=== PATIENT | female | born 1930 | race Caucasian/White ===

== ENCOUNTER 2017-09-02 08:29 | Inpatient (IN) | payer MEDICARE, OTHER ==
[2017-09-02] MEDS ORDERED: NS 0.9% 1000 ML* 1,000 ML IV ONE ×2 (08:38→09:53)
[2017-09-02 08:58] LABS: ABS Basophils 0 10^3/ul (0-0.2); ABS Eosinophils 0 10^3/ul (0-0.6); ABS Lymphocytes 1.2 10^3/ul (1.0-4.8); ABS Monocytes 0.6 10^3/ul (0-0.8); ABS Neutrophils 4.5 10^3/ul (1.5-7.7); ABS Nucleated RBC 0 10^3/ul; Eosinophil % 0.3 % (0-6); Hematocrit 46 % (35-47); Hemoglobin 15.9 g/dl (12.0-16.0); Lymphocyte % 18.5 % (25-47); Mean Corpuscular HGB Conc 35 g/dl (31-36); Mean Corpuscular Hemoglobin 32 pg (27-31); Mean Corpuscular Volume 93 fL (80-97); Mean Platelet Volume 7 um3 (7.4-10.4); Nucleated Red Blood Cells % 0.1; Platelet Count 196 10^3/ul (150-450); Red Blood Count 4.94 10^6/ul (4.0-5.4); Red Cell Distribution Width 14 % (10.5-15); White Blood Count 6.2 10^3/ul (3.5-10.8)
[2017-09-02 09:16] LABS: EGFR Non-African American 48.5 (>60)
[2017-09-02 09:18] LABS: INR 0.98 (0.77-1.02)
[2017-09-02] MEDS ORDERED: Iodixanol* (CONTRAST) 320 MG/ML 100 ML SDV IV ONE (09:19)
--- NOTE | 2017-09-02 10:06 | RAD ---
HISTORY: Fall, syncope COMPARISONS: May 11, 2016 TECHNIQUE: Multiple contiguous axial CT scans were obtained of the head without intravenous contrast. FINDINGS: HEMORRHAGE/INFARCT: There is no hemorrhage or acute infarct. MASSES/SHIFT: There is no mass or shift. EXTRA-AXIAL SPACES: There are no extra-axial fluid collections. SULCI AND VENTRICLES: The sulci and ventricles are normal in size and position for the patient's stated age. CEREBRUM: There is hypoattenuation of the periventricular and subcortical white matter. BRAINSTEM: There are no focal parenchymal abnormalities. CEREBELLUM: There are no focal parenchymal abnormalities. VESSELS: The vessels are grossly normal. PARANASAL SINUSES: The paranasal sinuses are clear. ORBITS: The orbits are unremarkable. BONES AND SOFT TISSUE: No bone or soft tissue abnormalities are noted. OTHER: None IMPRESSION: NO ACUTE INTRACRANIAL PATHOLOGY.
--- NOTE | 2017-09-02 10:17 | RAD ---
HISTORY: Fall, neck pain COMPARISONS: April 01, 2009 TECHNIQUE: Multiple contiguous axial CT scans were obtained of the cervical spine without intravenous contrast, with coronal and sagittal multiplanar reformations. FINDINGS: BRAIN: The visualized brain is unremarkable CENTRAL CANAL: Evaluation of the central canal is limited on CT technique; however, there is no obvious canalicular mass or epidural hemorrhage. Focal decreased attenuation in the central canal opposite of C4 on sagittal image 35 is felt to represent beam hardening artifact. ALIGNMENT: The alignment is normal, without subluxation or dislocation. VERTEBRAL BODIES: There is diffuse osteopenia. There is no displaced fracture. There is multilevel anterolateral marginal osteophyte formation. 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 There is osteoarthritis of the atlantoaxial articulation. MUSCULATURE: Unremarkable INTERVERTEBRAL DISCS: There is diffuse loss of intervertebral disc height. AXIAL IMAGES: C2-C3: There is no osseous neural foraminal narrowing or central canal stenosis. C3-C4: There is no osseous neural foraminal narrowing or central canal stenosis. C4-C5: There is no osseous neural foraminal narrowing or central canal stenosis. C5-C6: There is no osseous neural foraminal narrowing or central canal stenosis. C6-C7: There is no osseous neural foraminal narrowing or central canal stenosis. C7-T1: There is no osseous neural foraminal narrowing or central canal stenosis. SOFT TISSUES: The visualized soft tissues of the neck are unremarkable. The prevertebral fat stripe is preserved. OTHER: None. IMPRESSION: OSTEOPENIA. DEGENERATIVE DISC DISEASE AND OSTEOPOROSIS. NO ACUTE OSSEOUS INJURY TO THE CERVICAL SPINE
--- NOTE | 2017-09-02 10:25 | RAD ---
Indication: Chest pain. Contrast: Administered 100.0 ml of VISAPAQUE 320 mg/ml CTA of the chest, abdomen and pelvis was performed after IV contrast administration. Coronal, sagittal and 3-D reconstructive images were obtained. Inferior thyroid lobes are unremarkable. The aortic arch, great vessels are unremarkable. There is no evidence of aortic dissection. No evidence of aneurysmal dilatation is noted. Common iliac artery, external iliac arteries are unremarkable. There are small lymph nodes measuring 12 mm. Precarinal lymph node measures up to 9 mm. Right hilar adenopathy measuring up to 16 mm is noted. The heart demonstrates no pericardial effusion. No evidence of pulmonary embolus is noted. The trachea and major bronchi appear patent. Bibasilar atelectasis is noted. No pleural fluid is identified. Bibasilar atelectasis is noted. No pleural fluid is identified. Mild emphysematous changes are noted. CT of the abdomen and pelvis demonstrates liver to be normal in size. Low density lesion in the left lobe of liver consistent with cyst is noted measuring 2.5 cm. No intrahepatic ductal dilatation is noted. The gallbladder demonstrates no calcified gallstones. No pericholecystic fluid or wall thickening is identified. The pancreas demonstrates no mass or pancreatic duct dilatation. The spleen is normal in size. No adrenal masses are noted. The kidneys demonstrates atrophic kidneys with no hydronephrosis. Aorta demonstrates no evidence of aneurysmal dilatation. Mild atherosclerosis is noted. The origins of the vessels are grossly unremarkable. No retroperitoneal lymphadenopathy is noted. No dilated loops of bowel are noted. CT of the pelvis demonstrates no retroperitoneal or pelvic lymphadenopathy. The urinary bladder is unremarkable. No hernias are noted. No dilated loops of bowel are noted. No definite pelvic adenopathy is noted. The uterus and ovaries are unremarkable. The bony structures demonstrates diffuse osteopenia. IMPRESSION: No evidence of aortic dissection or aneurysmal dilatation of the thoracic or descending aorta. No branch occlusion is identified. No evidence of pulmonary embolus is noted. Likely atelectasis and chronic changes in the lung bases. Cardiomegaly is noted. Hepatic cyst is noted.
[2017-09-02] MEDS ORDERED: Ondansetron INJ* 2 MG/ML VIAL IV ONE (10:29)
[2017-09-02] MEDS ORDERED: Morphine INJ* 2 MG/ML 1 ML CARPUJECT IV ONE (10:30)
[2017-09-02 12:53] LABS: Urine Appearance Clear; Urine Blood 1+ (Negative); Urine Color Amber; Urine Ketones 1+ (Negative); Urine Protein 1+(30 mg/dL) (Negative); Urine Specific Gravity 1.044 (1.010-1.030); Urine Urobilinogen Negative (Negative)
[2017-09-02] MEDS ORDERED: Oseltamivir CAP* 30 MG CAP PO ONE (14:10)
[2017-09-02] MEDS ORDERED: NS 0.9% 1000 ML* 1,000 ML IV SCH (15:00)
[2017-09-02] MEDS ORDERED: Naphazoline/Pheniramine OPTH* 5 ML BTL BOTH EYES PRN (15:24)
[2017-09-02] MEDS ORDERED: Ergocalciferol CAP* 50000 UNIT PO SCH (16:00)
[2017-09-02] MEDS ORDERED: Albuterol/Ipratropium NEB.SOL* Albuterol 2.5 MG/Ipratropium 0.5 MG 3 ML INH PRN ×2 (17:05→23:49)
[2017-09-02] MEDS: Rivaroxaban TAB(*) 15 MG PO SCH (17:14)
[2017-09-02] MEDS: HYDROcodone/ACETAMIN 5-325 MG* 1 TAB PO PRN (17:14)
[2017-09-02] MEDS: Diltiazem TAB* 30 MG PO SCH ×2 (18:41→23:57)
[2017-09-02] MEDS: Albuterol/Ipratropium NEB.SOL* Albuterol 2.5 MG/Ipratropium 0.5 MG 3 ML INH SCH ×2 (19:58→23:41)
--- NOTE | 2017-09-02 20:07 | HP ---
CC: Dr. Brumfield * HISTORY AND PHYSICAL: DATE OF ADMISSION: 09/02/17 ATTENDING PHYSICIAN: Dr. Dominguez * (report dictated by Leticia Tillman NP) PRIMARY CARE PROVIDER: Dr. Brumfield. CHIEF COMPLAINT: Fall. HISTORY OF PRESENT ILLNESS: Ms. Manning is an 87-year-old female with a past medical history of atrial fibrillation on Xarelto, hypertension, hyperlipidemia , chronic kidney disease stage 2 to 3, and some mild cognitive decline who lives at [facility] as an independent resident with her who found her on the floor this morning. The patient does not remember falling and does not know how long she was on the floor. Per the and the son who are currently at the bedside, she has not been feeling well for 2 days, which started with a cough and fatigue. The patient denies any fevers or chills. She does report increased fatigue, decreased appetite and had some diarrhea this morning. In the emergency department today, she was found to be positive for influenza A. She denies body aches, headache, nausea, vomiting, abdominal pain. No urinary symptoms. She does not remember getting out of bed and falling and is not sure if she rolled out of bed as she was found right next to the bed or if she tried to get up to go to the bathroom. It was also reported by EMS that there was some diarrhea found in her undergarment as well as on the sheets of her bed. Currently, the patient reports she feels a little better. Again, she denies fevers, chills, body aches, headache, abdominal pain, and has had no further diarrhea. She reports decreased appetite and fatigue. The patient does report she has some chest discomfort when she breathes in, but states "I do not think it is cardiac." She was found down on her chest and has noted reproducible chest pain. She denies shortness of breath. In the emergency department, her vital signs were stable. She was given 1 L of IV normal saline. She has no noted leukocytosis. Her total creatine kinase was found to be 840. She has a slightly elevated troponin of 0.05 and 0.06. No EKG changes. PAST MEDICAL HISTORY: 1. Stage 2 to 3 chronic kidney disease. 2. Atrial fibrillation, anticoagulated on Xarelto. 3. Hyperlipidemia. 4. Hypertension. PAST SURGICAL HISTORY: Tonsillectomy. HOME MEDICATIONS: 1. Xarelto 20 mg p.o. daily. 2. Diltiazem CD 240 mg p.o. q.a.m. 3. Magnesium 250 mg p.o. q.p.m. 4. Acetaminophen 500 mg p.o. q.8 hours p.r.n. 5. Zyrtec 5 mg p.o. q.a.m. 6. Meclizine 12.5 mg p.o. q.8 hours p.r.n. 7. Vitamin B12, 1000 mcg p.o. daily. 8. Naphazoline with pheniramine 1 drop both eyes 4 times a day p.r.n. 9. Vitamin D 50,000 units p.o. weekly. 10. Aricept 5 mg p.o. daily. ALLERGIES: AMOXICILLIN, ASPIRIN, SOMA, BARBITURATES, METOPROLOL, CLAVULANIC ACID. FAMILY HISTORY: Reports no family history of heart disease. Her father has a history of colorectal cancer which he from and her mother of advanced age. SOCIAL HISTORY: The patient is currently an independent resident at [facility] where she lives with her . Her is her healthcare proxy. She has 5 adult sons. She denies any history of tobacco abuse and reports occasional alcohol use. REVIEW OF SYSTEMS: A 14-point review of systems was performed. All the pertinent positives and negative are mentioned in the history of present illness. Otherwise, negative. PHYSICAL EXAMINATION GENERAL APPEARANCE: Well-appearing 87-year-old female, sitting up in bed, in no acute distress. Her and son are at the bedside. The patient is alert and oriented x3. She has noted mild cognitive impairment with memory recall, but is able to answer questions appropriately. VITAL SIGNS: Temperature 98.9, heart rate 85, respirations 17, O2 sat 94% on room air, blood pressure is 112/64. HEENT: Head is normocephalic, atraumatic. Pupils are equal and reactive to light. Oropharynx is clear. Dry mucous membranes. NECK: Supple. No lymphadenopathy. LUNGS: Clear to auscultation bilaterally. Good aeration throughout. No rhonchi, wheezes, or rales noted. CARDIAC: S1, S2. Irregularly irregular. No murmur noted. ABDOMEN: Soft, nontender, nondistended. Normal bowel sounds throughout. No CVA tenderness. EXTREMITIES: No clubbing, cyanosis, or edema noted. MUSCULOSKELETAL: Strength is 5/5 throughout. Moves all extremities equally. reproducible chest pain with palpation to midsternum and right upper chest wall , no noted eccymosis or redness. SKIN: Warm, pink, dry. No rashes, lesions, or wounds noted. LABORATORY DATA AND DIAGNOSTIC STUDIES: Sodium 133, potassium 3.9, chloride 98 , carbon dioxide 24, anion gap 11, BUN 25, creatinine 1.04, glucose 90, lactic acid 1.6, calcium 9.6, total bilirubin 0.50, AST 56, ALT 20, alkaline phosphatase 78. Total creatine kinase 840. Troponin 0.05, 0.06. Total protein 7.6, albumin 4.2. WBC 6.2, RBC 4.94, HGB 15.9, HCT 46, MCV 93, MCH 32, MCHC 35, RDW 14, platelet count 196,000. INR 0.98. Influenza A positive. Influenza B negative. Chest, abdomen, pelvis CTA, impression: No evidence of aortic dissection or aneurysmal dilatation of the thoracic or descending aorta. No branch occlusion is identified. No evidence of pulmonary embolus is noted. Likely, atelectasis and chronic changes in the lung bases. Cardiomegaly is noted. Hepatic cyst is noted. Brain CT, no acute intracranial pathology. Cervical spine CT, impression: Osteopenia. Degenerative disk disease and osteoporosis. No acute osseous injury to the cervical spine. EKG, atrial fibrillation with a rate of 74, no ST changes noted. ASSESSMENT AND PLAN: Ms. Manning is an 87-year-old female with a past medical history of atrial fibrillation, on Xarelto, chronic kidney disease, hyperlipidemia, and hypertension who presented to the emergency department today after she was found on the floor for an unknown amount of time and found to have influenza A. 1. Influenza A. She will be started on Tamiflu renally dosed at 30 mg p.o. t.i.d. x5 days. She appears to be mildly ill at this time. She has no noted pneumonia. No lactic acidosis and no leukocytosis. She does appear to be dehydrated and was given 1 L of normal saline in the emergency department. Plan will be to start normal saline at 100 mL an hour times another liter. We will continue to encourage her to get out of bed to chair and commode and ambulate as she can with assistance, so she does not become weak and lose her strength. 2. Fall. The patient's creatine kinase is 840. Will give gentle IV fluids and recheck in the morning. It is unknown how long she was down on the floor. It is unknown if she had a syncopal episode as she does not remember. We will monitor her on telemetry. Obtain echo. She is on xarelto, no noted bruising at this time. CT brain negative. 3. Indeterminate elevated troponin. The patient does not have any EKG changes. She has some chest discomfort, but this is reproducible when I push on her chest i believe it is from her falling. First troponin is 0.05, second troponin is 0.06. We will check a third troponin now. 4. Atrial fibrillation. Controlled rate on Cardizem. We will continue Xarelto at this time. Continue Cardizem home dose. 5. Chronic kidney disease. The patient appears to be around her baseline creatinine. Renally dosed medications. 6. Hypertension. Continue valsartan and diltiazem. 7. Code status. The patient is a DNR/DNI. The MOLST has been reviewed with the patient and her as well as the son who is at the bedside who agreed with the plan. 8. Healthcare proxy is her . 9. Disposition. OBV. It is really possible the patient may be able to go home tomorrow determining her functional status. LETICIA TILLMAN NP [id number]/CPS #: [id number] MATTHEW
[2017-09-02] MEDS ORDERED: Oseltamivir CAP* 30 MG CAP PO SCH (21:00)
[2017-09-03] MEDS: HYDROcodone/ACETAMIN 5-325 MG* 1 TAB PO PRN (02:57)
[2017-09-03] MEDS: Diltiazem TAB* 30 MG PO SCH ×4 (05:51→23:35)
[2017-09-03] MEDS ORDERED: Oseltamivir CAP* 30 MG CAP PO SCH (06:00)
[2017-09-03 06:30] LABS: ABS Basophils 0 10^3/ul (0-0.2); ABS Eosinophils 0 10^3/ul (0-0.6); ABS Lymphocytes 0.9 10^3/ul (1.0-4.8); ABS Monocytes 0.3 10^3/ul (0-0.8); ABS Nucleated RBC 0 10^3/ul; Eosinophil % 0.8 % (0-6); Hematocrit 35 % (35-47); Hemoglobin 12.3 g/dl (12.0-16.0); Lymphocyte % 27.1 % (25-47); Mean Corpuscular HGB Conc 35 g/dl (31-36); Mean Corpuscular Hemoglobin 33 pg (27-31); Mean Corpuscular Volume 93 fL (80-97); Mean Platelet Volume 7 um3 (7.4-10.4); Nucleated Red Blood Cells % 0.1; Platelet Count 174 10^3/ul (150-450); Red Blood Count 3.79 10^6/ul (4.0-5.4); Red Cell Distribution Width 14 % (10.5-15); White Blood Count 3.2 10^3/ul (3.5-10.8)
[2017-09-03 06:44] LABS: EGFR Non-African American 42.9 (>60)
[2017-09-03] MEDS ORDERED: Magnesium Oxide TAB* 400 MG PO ONE ×2 (07:49→11:49)
[2017-09-03] MEDS: Oseltamivir CAP* 30 MG CAP PO SCH ×2 (08:48→21:38)
[2017-09-03] MEDS: Donepezil TAB* 5 MG PO SCH (08:48)
[2017-09-03] MEDS: Cyanocobalamin TAB* 500 MCG PO SCH (08:49)
[2017-09-03] MEDS: Acetaminophen TAB* 325 MG PO PRN ×2 (08:49→23:35)
[2017-09-03] MEDS ORDERED: Diltiazem CD CAP* 240 MG PO SCH (09:00)
--- NOTE | 2017-09-03 11:58 | PN ---
Subjective Date of Service: 09/03/17 Interval History: She is having visual hallucinations. When she was looking at her menu, she saw a new red/yellow menu descend from the ceiling and she started checking boxes on that menu. She has no pain, no cough, no fevers/chills, no diarrhea. Family History: Unchanged from Admission Social History: Unchanged from Admission Past Medical History: Unchanged from Admission Objective Active Medications: Acetaminophen (Tylenol Tab*) 650 mg PO Q6H PRN PRN Reason: FEVER/PAIN Last Admin: 09/03/17 08:49 Dose: 650 mg Hydrocodone Bitart/Acetaminophen ([place] 5-325 Tab*) 1 tab PO Q6H PRN PRN Reason: PAIN Last Admin: 09/03/17 02:57 Dose: 1 tab Albuterol/Ipratropium (Duoneb (Albuterol 2.5 Mg/Ipratropium 0.5 Mg)) 1 neb INH Q4H PRN PRN Reason: SOB/WHEEZING Cyanocobalamin (Vitamin B12 Tab*) 1,000 mcg PO DAILY [facility] Last Admin: 09/03/17 08:49 Dose: 1,000 mcg Diltiazem HCl (Cardizem Tab*) 30 mg PO Q6HR [facility] Last Admin: 09/03/17 05:51 Dose: 30 mg Donepezil HCl (Aricept Tab*) 5 mg PO DAILY [facility] Last Admin: 09/03/17 08:48 Dose: 5 mg Naphazoline HCl/Pheniramine Maleate (Naphcon-A*) 1 drop BOTH EYES QID PRN PRN Reason: ITCHING Oseltamivir Phosphate (Tamiflu Cap*) 30 mg PO 0900,2100 [facility] Stop: 09/07/17 09:01 Last Admin: 09/03/17 08:48 Dose: 30 mg Rivaroxaban (Xarelto(*)) 15 mg PO QPM [facility] Last Admin: 09/02/17 17:14 Dose: 15 mg Vital Signs - 8 hr 09/03/17 09/03/17 09/03/17 05:44 08:00 08:28 Temperature 98.3 F Pulse Rate 67 Respiratory 19 20 20 Rate Blood Pressure 108/58 (mmHg) O2 Sat by Pulse 100 100 Oximetry Oxygen Devices in Use Now: Nasal Cannula Appearance: nontoxic, no distress Eyes: No Scleral Icterus Ears/Nose/Mouth/Throat: NL Teeth, Lips, Gums Neck: NL Appearance and Movements; NL JVP Respiratory: Symmetrical Chest Expansion and Respiratory Effort, - - rhonchi at the right base Cardiovascular: NL Sounds; No Murmurs; No JVD, RRR Abdominal: NL Sounds; No Tenderness; No Distention Extremities: No Edema Skin: No Rash or Ulcers Neurological: - - oriented x 4, but tangential with clouded sensorium, forgetful Result Diagrams: 09/03/17 05:51 09/03/17 06:00 Assess/Plan/Problems-Billing Assessment: 87 yo female with history of afib - Patient Problems (1) Influenza Current Visit: Yes Status: Acute Code(s): J11.1 - FLU DUE TO UNIDENTIFIED INFLUENZA VIRUS W OTH RESP MANIFEST SNOMED Code(s): 7587021 Comment: tamiflu day 2 (2) Fall Current Visit: Yes Status: Acute Comment: she and her report 3 falls in the past week. may be unsafe to return to current living situation check orthostatic vitals PT consult (3) Afib Current Visit: No Status: Acute Code(s): I48.91 - UNSPECIFIED ATRIAL FIBRILLATION SNOMED Code(s): 00223825 Comment: Continue diltiazem and xarelto. (4) Hypertension Current Visit: No Status: Acute Code(s): I10 - ESSENTIAL (PRIMARY) HYPERTENSION SNOMED Code(s): 67223666 Comment: BP well controlled (5) Oliguria Current Visit: Yes Status: Acute Code(s): R34 - ANURIA AND OLIGURIA SNOMED Code(s): 75509474 Comment: bladder scan with <300cc; suspect volume depletion. resume IVF. (6) Encephalopathy acute Current Visit: Yes Status: Acute Code(s): G93.40 - ENCEPHALOPATHY, UNSPECIFIED SNOMED Code(s): 0546396 Comment: may be related to influenza, but I also suspect volume depletion. CT head negative yesterday. UA unremarkable. may also be progressive dementia.
[2017-09-03] MEDS: NS 0.9% 1000 ML* 1,000 ML IV SCH (12:33)
[2017-09-03] MEDS: Ondansetron INJ* 2 MG/ML VIAL IV PRN (14:53)
[2017-09-03] MEDS: Rivaroxaban TAB(*) 15 MG PO SCH (18:21)
--- NOTE | 2017-09-03 19:07 | RAD ---
INDICATION: Small bowel obstruction. COMPARISON: Comparison is made with a prior CT of the chest, abdomen and pelvis from September 02, 2017. TECHNIQUE: Frontal supine films of the abdomen were obtained. FINDINGS: The small bowel and colon appear nondistended. There is contrast within the urinary bladder from the prior CT study. IMPRESSION: NO EVIDENCE FOR OBSTRUCTION.
[2017-09-04] MEDS: NS 0.9% 1000 ML* 1,000 ML IV SCH ×2 (00:57→06:59)
[2017-09-04] MEDS: Diltiazem TAB* 30 MG PO SCH (07:00)
[2017-09-04] MEDS: Donepezil TAB* 5 MG PO SCH (07:58)
[2017-09-04] MEDS: Cyanocobalamin TAB* 500 MCG PO SCH (07:58)
[2017-09-04] MEDS: Oseltamivir CAP* 30 MG CAP PO SCH ×2 (07:58→19:56)
[2017-09-04] MEDS ORDERED: Potassium Chlor TAB* 20 MEQ TAB.ER PO ONE (09:25)
[2017-09-04] MEDS ORDERED: Magnesium Sulfate 2 GM IV* 2 GM/50 ML BAG IVPB ONE (09:25)
[2017-09-04] MEDS: Diltiazem CD CAP* 240 MG PO SCH (15:58)
--- NOTE | 2017-09-04 16:53 | PN ---
Subjective Date of Service: 09/04/17 Interval History: sharp, pleurtic pain. worse with cough. afebrile. no BMs for 24 hours. awaiting ECHO. KUB without obstruction. no more nausea. IVF stopped. rate controlled AFib on telemetry. Family History: Unchanged from Admission Social History: Unchanged from Admission Past Medical History: Unchanged from Admission Objective Active Medications: Acetaminophen (Tylenol Tab*) 650 mg PO Q6H PRN PRN Reason: FEVER/PAIN Last Admin: 09/03/17 23:35 Dose: 650 mg Hydrocodone Bitart/Acetaminophen ([place] 5-325 Tab*) 1 tab PO Q6H PRN PRN Reason: PAIN Last Admin: 09/03/17 02:57 Dose: 1 tab Albuterol/Ipratropium (Duoneb (Albuterol 2.5 Mg/Ipratropium 0.5 Mg)) 1 neb INH Q4H PRN PRN Reason: SOB/WHEEZING Cyanocobalamin (Vitamin B12 Tab*) 1,000 mcg PO DAILY [facility] Last Admin: 09/04/17 07:58 Dose: 1,000 mcg Diltiazem HCl (Cardizem Cd Cap*) 240 mg PO Q24H [facility] Last Admin: 09/04/17 15:58 Dose: 240 mg Donepezil HCl (Aricept Tab*) 5 mg PO DAILY [facility] Last Admin: 09/04/17 07:58 Dose: 5 mg Naphazoline HCl/Pheniramine Maleate (Naphcon-A*) 1 drop BOTH EYES QID PRN PRN Reason: ITCHING Ondansetron HCl (Zofran Inj*) 4 mg IV Q4H PRN PRN Reason: NAUSEA Last Admin: 09/03/17 14:53 Dose: 4 mg Oseltamivir Phosphate (Tamiflu Cap*) 30 mg PO 0900,2100 [facility] Stop: 09/07/17 09:01 Last Admin: 09/04/17 07:58 Dose: 30 mg Rivaroxaban (Xarelto(*)) 15 mg PO QPM [facility] Last Admin: 09/03/17 18:21 Dose: 15 mg Vital Signs - 8 hr 09/04/17 09/04/17 12:23 16:31 Temperature 97.7 F Pulse Rate 72 Respiratory 16 Rate Blood Pressure 128/69 (mmHg) O2 Sat by Pulse 98 97 Oximetry Oxygen Devices in Use Now: Nasal Cannula Appearance: NAD Eyes: No Scleral Icterus, PERRLA Ears/Nose/Mouth/Throat: NL Teeth, Lips, Gums, Mucous Membranes Moist Neck: NL Appearance and Movements; NL JVP, Trachea Midline Respiratory: Symmetrical Chest Expansion and Respiratory Effort, - - unable to take more than shallow breaths. Cardiovascular: NL Sounds; No Murmurs; No JVD Abdominal: NL Sounds; No Tenderness; No Distention, No Hepatosplenomegaly Extremities: No Edema, No Clubbing, Cyanosis Skin: No Rash or Ulcers, No Nodules or Sclerosis Neurological: Alert and Oriented x 3, NL Sensation, NL Muscle Strength and Tone , - Nutrition: Taking PO's Result Diagrams: 09/03/17 05:51 09/03/17 06:00 Microbiology and Other Data: Microbiology 09/02/17 15:43 Blood Venous Aerobic Blood Culture - Preliminary No Growth Day 2 09/02/17 15:43 Blood Venous Anaerobic Blood Culture - Preliminary No Growth Day 2 09/02/17 11:48 Blood Venous Aerobic Blood Culture - Preliminary No Growth Day 2 09/02/17 11:48 Blood Venous Anaerobic Blood Culture - Preliminary No Growth Day 2 09/02/17 12:00 Nasopharyngeal Influenza Types A,B Antigen ([facility]) - Final Specimen received for Influenza A/B Molecular testing Assess/Plan/Problems-Billing Assessment: 87 yo female with history of afib on xarelto, HTN, CKD who had mechanical fall at home(Kathy), found to be Influenza A positive. Sepsis (AMS, hypotensive). Pleuritic pain. - Patient Problems (1) Fall Current Visit: Yes Status: Acute Comment: she and her report 3 falls in the past week. not orthostatic 2/3. Did get 175 cc/hr NS yesterday. continue PT, was very N/V 2/2 (2) Encephalopathy acute Current Visit: Yes Status: Acute Code(s): G93.40 - ENCEPHALOPATHY, UNSPECIFIED SNOMED Code(s): 6358989 Comment: Improved/resolved. likely 2/[address] head negative yesterday. UA unremarkable. (3) Influenza Current Visit: Yes Status: Acute Code(s): J11.1 - FLU DUE TO UNIDENTIFIED INFLUENZA VIRUS W OTH RESP MANIFEST SNOMED Code(s): 9458932 Comment: Causing sepsis (hypotension, AMS) tamiflu day 2.5 (4) Afib Current Visit: No Status: Acute Code(s): I48.91 - UNSPECIFIED ATRIAL FIBRILLATION SNOMED Code(s): 60083765 Comment: Continue diltiazem (swith to extended release) and xarelto. (5) Hypertension Current Visit: No Status: Acute Code(s): I10 - ESSENTIAL (PRIMARY) HYPERTENSION SNOMED Code(s): 34000316 Comment: BP improved after some SBP <80s day of admission. Status and Disposition: medicine inpatient. Attending: Don Campos
[2017-09-04] MEDS: Rivaroxaban TAB(*) 15 MG PO SCH (17:04)
[2017-09-04] MEDS: Acetaminophen TAB* 325 MG PO PRN (19:55)
[2017-09-04] MEDS: Benzonatate CAP* 100 MG PO PRN (22:48)
[2017-09-05] MEDS: Donepezil TAB* 5 MG PO SCH (08:03)
[2017-09-05] MEDS: Oseltamivir CAP* 30 MG CAP PO SCH ×2 (08:03→21:56)
[2017-09-05] MEDS: Cyanocobalamin TAB* 500 MCG PO SCH (08:03)
[2017-09-05] MEDS: Acetaminophen TAB* 325 MG PO PRN ×2 (10:08→23:57)
--- NOTE | 2017-09-05 13:06 | PN ---
Subjective Date of Service: 09/05/17 Interval History: worked with PT. Pleuritic left sided chest pain continues. Poor appetite. Afebrile. hemodynamically stable. Family History: Unchanged from Admission Social History: Unchanged from Admission Past Medical History: Unchanged from Admission Objective Active Medications: Acetaminophen (Tylenol Tab*) 650 mg PO Q6H PRN PRN Reason: FEVER/PAIN Last Admin: 09/05/17 10:08 Dose: 650 mg Hydrocodone Bitart/Acetaminophen (Sod 5-325 Tab*) 1 tab PO Q6H PRN PRN Reason: PAIN Last Admin: 09/03/17 02:57 Dose: 1 tab Albuterol/Ipratropium (Duoneb (Albuterol 2.5 Mg/Ipratropium 0.5 Mg)) 1 neb INH Q4H PRN PRN Reason: SOB/WHEEZING Benzonatate (Tessalon Cap*) 100 mg PO TID PRN PRN Reason: COUGH Last Admin: 09/04/17 22:48 Dose: 100 mg Cyanocobalamin (Vitamin B12 Tab*) 1,000 mcg PO DAILY [facility] Last Admin: 09/05/17 08:03 Dose: 1,000 mcg Diltiazem HCl (Cardizem Cd Cap*) 240 mg PO Q24H [facility] Last Admin: 09/04/17 15:58 Dose: 240 mg Donepezil HCl (Aricept Tab*) 5 mg PO DAILY [facility] Last Admin: 09/05/17 08:03 Dose: 5 mg Naphazoline HCl/Pheniramine Maleate (Naphcon-A*) 1 drop BOTH EYES QID PRN PRN Reason: ITCHING Ondansetron HCl (Zofran Inj*) 4 mg IV Q4H PRN PRN Reason: NAUSEA Last Admin: 09/03/17 14:53 Dose: 4 mg Oseltamivir Phosphate (Tamiflu Cap*) 30 mg PO 0900,2100 [facility] Stop: 09/07/17 09:01 Last Admin: 09/05/17 08:03 Dose: 30 mg Rivaroxaban (Xarelto(*)) 15 mg PO QPM [facility] Last Admin: 09/04/17 17:04 Dose: 15 mg Vital Signs - 8 hr 09/05/17 09/05/17 09/05/17 08:00 09:50 12:17 Temperature 98.4 F 98.4 F Pulse Rate 74 66 Respiratory 18 20 16 Rate Blood Pressure 142/100 141/69 (mmHg) O2 Sat by Pulse 99 96 Oximetry Oxygen Devices in Use Now: Nasal Cannula Appearance: NAD, Eyes: No Scleral Icterus, PERRLA Ears/Nose/Mouth/Throat: NL Teeth, Lips, Gums, Mucous Membranes Moist Neck: NL Appearance and Movements; NL JVP, Trachea Midline Respiratory: Symmetrical Chest Expansion and Respiratory Effort, - - won't take deep breaths 2/2 pain. no gross wheezing, rhonchi or rales. Cardiovascular: NL Sounds; No Murmurs; No JVD, RRR Abdominal: NL Sounds; No Tenderness; No Distention Extremities: No Edema, No Clubbing, Cyanosis Skin: No Rash or Ulcers, No Nodules or Sclerosis Neurological: Alert and Oriented x 3, NL Sensation Result Diagrams: 09/03/17 05:51 09/03/17 06:00 Microbiology and Other Data: Microbiology 09/02/17 11:48 Blood Venous Aerobic Blood Culture - Preliminary No Growth Day 3 09/02/17 11:48 Blood Venous Anaerobic Blood Culture - Preliminary No Growth Day 3 09/02/17 15:43 Blood Venous Aerobic Blood Culture - Preliminary No Growth Day 2 09/02/17 15:43 Blood Venous Anaerobic Blood Culture - Preliminary No Growth Day 2 09/02/17 12:00 Nasopharyngeal Influenza Types A,B Antigen (STEVENSON) - Final Specimen received for Influenza A/B Molecular testing Assess/Plan/Problems-Billing Assessment: 87 yo female with history of afib on xarelto, HTN, CKD who had mechanical fall at home([facility]), found to be Influenza A positive. Sepsis (AMS, hypotensive). Pleuritic pain continues. - Patient Problems (1) Influenza Current Visit: Yes Status: Acute Code(s): J11.1 - FLU DUE TO UNIDENTIFIED INFLUENZA VIRUS W OTH RESP MANIFEST SNOMED Code(s): 6151999 Comment: Causing sepsis (hypotension, AMS) likely causing pleuritic pain. s/p CT c/a/p with contrast. no PE or dissection. tamiflu day 3.5 cxr today. wean oxygen as able. Sat'ing high 90s on 2L. (2) Fall Current Visit: Yes Status: Acute Comment: she and her report 3 falls in the past week. not orthostatic 09/04/17. continue PT, likely will need [facility] (3) Encephalopathy acute Current Visit: Yes Status: Acute Code(s): G93.40 - ENCEPHALOPATHY, UNSPECIFIED SNOMED Code(s): 1711818 Comment: Improved/resolved. likely 2/[address] head negative 09/02 UA unremarkable. (4) Afib Current Visit: No Status: Acute Code(s): I48.91 - UNSPECIFIED ATRIAL FIBRILLATION SNOMED Code(s): 82105038 Comment: Continue diltiazem ER and xarelto. Rate controlled (5) Hypertension Current Visit: No Status: Acute Code(s): I10 - ESSENTIAL (PRIMARY) HYPERTENSION SNOMED Code(s): 81846476 Comment: BP improved after some SBP <80s day of admission. Status and Disposition: medicine inpatient. Likely d/c 09/06 Attending: Don Campos
--- NOTE | 2017-09-05 13:23 | ED ---
Paul De Jesus Stephanie, scribed for Milo Huddleston MD on 09/02/17 at 0905 . Back Pain - HPI Summary HPI Summary: The pt is an 87 y/o F BIBA to the ED with c/o fall last night. Per EMS, the pt was found on her floor. Symptoms include lower back pain, mild pleuritic CP, CP with breathing and diarrhea. The pt denies SOB and HOLT. BP has been variable. The pt is normally confused. Her is deaf and found her this morning. The pt is unaware if she experienced syncope. Per EMS, the pt experienced a-fib in the ambulance. Per EMS, pt appears AMS. The pt has history of dementia but todays AMS is different and worse per staff at [facility]. - History of Current Complaint Chief Complaint: EDAltMentalStatus Stated Complaint: FALL Time Seen by Provider: 09/02/17 08:35 Hx Obtained From: Patient, EMS Onset/Duration: Lasting Hours, Still Present Timing: Constant Back Pain Location: Is Discrete @ - lower back Severity Currently: Mild Pain Intensity: 0 Pain Scale Used: 0-10 Numeric Aggravating Symptom(s): Nothing Alleviating Symptom(s): Nothing Associated Signs And Symptoms: Positive: Other - lower back pain, mild pleuritic CP and diarrhea - Allergies/Home Medications Allergies/Adverse Reactions: Allergies Allergy/AdvReac Type Severity Reaction Status Date / Time MS Amoxicillin [Amoxicillin] Allergy Severe Itching Verified 05/11/16 10:11 MS Aspirin [Aspirin] Allergy Severe CAN'T TAKE Verified 05/11/16 10:11 - ON XARELTO MS Carisoprodol [From Soma] Allergy Severe unk Verified 05/11/16 10:11 MS Barbiturates Allergy Intermediate Itching Verified 05/11/16 10:11 [Barbiturates] MS Metoprolol Allergy Unknown Unknown Verified 05/11/16 10:11 [From Toprol XL] Reaction Details MS Clavulanic Acid Allergy Itching Verified 05/11/16 10:11 [From Augmentin] Home Medications: Home Medications Cetirizine* [ZyrTEC 10 MG TAB*] 5 mg PO QAM 09/02/17 [History Confirmed 09/02/17 ] Cholecalciferol TAB* [Vitamin D TAB*] 50,000 units PO WEEKLY 09/02/17 [History Confirmed 09/02/17] Cyanocobalamin TAB* [Vitamin B12 TAB*] 1,000 mcg PO DAILY 09/02/17 [History Confirmed 09/02/17] Donepezil TAB* [Aricept 5 MG TAB*] 5 mg PO DAILY 09/02/17 [History Confirmed 08/19] HYDROcodone/ACETAMIN 5-325 MG* [Gardner 5-325 TAB*] 1 - 2 tab PO .Q4-6H PRN [History Confirmed 09/02/17] Meclizine TAB* [Antivert 12.5 TAB*] 12.5 mg PO Q8H PRN 09/02/17 [History Confirmed 09/02/17] Naphazoline W/ Pheniramine [Opcon-A] 1 drop BOTH EYES QID PRN 09/02/17 [History Confirmed 09/02/17] Triamcinolone 0.1% CREAM (NF) [Kenalog 0.1% Cream (NF)] 1 applic TOPICAL BID PRN 09/02/17 [History Confirmed 09/02/17] PMH/Surg Hx/FS Hx/Imm Hx Endocrine/Hematology History: Reports: Hx Anticoagulant Therapy - Coumadin for Afib, Hx Thyroid Disease, Hx Anemia Denies: Hx Diabetes Cardiovascular History: Reports: Hx Coronary Artery Disease, Hx Hypercholesterolemia, Hx Hypertension, Hx Rheumatic Fever - A CHILD POSSIBLY , Hx Valvular Heart Disease - aortic stenosis, Other Cardiovascular Problems/ Disorders - pfo, nsvt, mitral valve prolapse, afib Denies: Hx Angina, Hx Pacemaker/ICD Respiratory History: Reports: Hx Pneumonia Denies: Hx Asthma, Hx Chronic Obstructive Pulmonary Disease (COPD) GI History: Reports: Hx Gastroesophageal Reflux Disease Denies: Hx Irritable Bowel, Hx Ulcer, Other GI Disorders History: Denies: Hx Acute Renal Failure, Hx Renal Disease Musculoskeletal History: Denies: Hx Arthritis Sensory History: Denies: Hx Contacts or Glasses, Hx Hearing Aid Opthamlomology History: Denies: Hx Contacts or Glasses Neurological History: Reports: Hx Migraine - HX OF YEARS AGO Denies: Hx Dementia, Hx Seizures Psychiatric History: Denies: Hx Substance Abuse - Cancer History Hx Chemotherapy: No Hx Radiation Therapy: No - Surgical History Surgery Procedure, Year, and Place: RIGHT INGUIAL HERNIA REPAIR,. 2010 CARDIAC CATHETERIZATION, [facility] [place]. 2008 RIGHT PARTIAL PALMAR FASCIOTOMY WITH RELEASE OF LITTLE FINGER, [facility]. TONSILLECTOMY A CHILD,. CLOSURE OF HEART FLAP, [facility] ( ACCORDING TO PATIENT DONE BY DR. LEE) Hx Anesthesia Reactions: No Infectious Disease History: No Infectious Disease History: Denies: Hx Hepatitis, Hx Human Immunodeficiency Virus (HIV), Traveled Outside the [place] in Last 30 Days - Family History Known Family History: Positive: Unknown - Pt denies family history when asked Family History: Denies any FHx of malignant hyperthermia, anesthesia reaction, or breast cancer. - Social History Occupation: Retired Lives: With Family Alcohol Use: Rare Substance Use Type: Reports: None Smoking Status (MU): Never Smoked Tobacco Review of Systems Negative: Fever, Chills Negative: Erythema Negative: Sore Throat Positive: Chest Pain - mild pleuritic CP , Other - Pain with breathing Negative: Shortness Of Breath, Cough Positive: Diarrhea. Negative: Abdominal Pain, Vomiting, Nausea Negative: dysuria, hematuria Positive: Other - Lower back pain. Negative: Myalgia, Edema Negative: Rash Neurological: Other - Negative: dizziness All Other Systems Reviewed And Are Negative: Yes Physical Exam - Summary Physical Exam Summary: Constitutional: Well-developed, Well-nourished, Alert. (-) Distressed Skin: Warm, Dry HENT: Normocephalic; Atraumatic Eyes: Conjunctiva normal Neck: Musculoskeletal ROM normal neck. (-) JVD, (-) Stridor, (-) Tracheal deviation Cardio: Rhythm regular, rate normal, Heart sounds normal; Intact distal pulses; The pedal pulses are 2+ and symmetric. Radial pulses are 2+ and symmetric. (-) Murmur Pulmonary/Chest wall: Effort normal. (-) Respiratory distress, (-) Wheezes, (-) Rales Abd: Soft, (-) Tenderness, (-) Distension, (-) Guarding, (-) Rebound Musculoskeletal: tender over L ribs, no tenderness over upper thighs Lymph: (-) Cervical adenopathy Neuro: Alert, Oriented x3 Psych: Mood and affect Normal Triage Information Reviewed: Yes Vital Signs On Initial Exam: Initial Vitals Temp Pulse Resp BP Pulse Ox 97.5 F 123 19 126/87 95 09/02/17 08:30 09/02/17 08:30 09/02/17 08:30 09/02/17 08:30 09/02/17 08:30 Vital Signs Reviewed: Yes Diagnostics - Vital Signs Vital Signs Temp Pulse Resp BP Pulse Ox 09/02/17 08:30 97.5 F 123 19 126/87 95 - Laboratory Result Diagrams: 09/02/17 08:45 09/02/17 08:45 Lab Statement: Any lab studies that have been ordered have been reviewed, and results considered in the medical decision making process. - CT Cervical Spine CT Interpretation: No Acute Changes CT Interpretation Completed By: Radiologist - OSTEOPENIA. DEGENERATIVE DISC DISEASE AND OSTEOPOROSIS. NO ACUTE OSSEOUS INJURY TO THE CERVICAL SPINE Brain CT Interpretation: No Acute Changes CT Interpretation Completed By: Radiologist - NO ACUTE INTRACRANIAL PATHOLOGY. Chest/Abdomen/Pelvis CTA CT Interpretation: No Acute Changes CT Interpretation Completed By: Radiologist - No evidence of aortic dissection or aneurysmal dilatation of the thoracic or descending aorta. No branch occlusion is identified. No evidence of pulmonary embolus is noted. Likely atelectasis and chronic changes in the lung bases. Cardiomegaly is noted. Hepatic cyst is noted. - EKG 08:29 EKG Rhythm: Atrial Flutter - 110 BPM EKG Interpretation: No STEMI 10:54 Cardiac Rate: NL EKG Rhythm: Atrial Fibrillation - 84 BPM EKG Interpretation: No STEMI Re-Evaluation - Re-Evaluation First Eval Re-Evaluation Time: 11:02 Change: Unchanged - Per , the pt has had a cough for the last few days. The pt has CP when she sits up. Pt has pain in the upper thighs. Back Pain Course/Dx - Course Course Of Treatment: Elevated troponin in the elderly. Signs of flu with myalgia in legs, no signs of STEMI, no fractures or aortic dissection. PE could be considered due to pleuritic nature. However, pt is anticoagulated. - Diagnoses Provider Diagnoses: Elevated troponin Discharge - Discharge Plan Condition: Stable Disposition: ADMITTED TO [facility] Referrals: Kathy, [Primary Care Provider] - The documentation as recorded by the Paul short Stephanie accurately reflects the service I personally performed and the decisions made by me, Milo Huddleston MD.
--- NOTE | 2017-09-05 13:47 | RAD ---
INDICATION: Pleuritic chest pain COMPARISON: Most recent chest x-ray is dated May 11, 2016 TECHNIQUE: Single AP portable view of the chest was obtained. FINDINGS: Image quality is compromised due to the relative inferiority of a portable chest x-ray. The heart and mediastinum exhibit normal size and contour. There is atherosclerotic calcification overlying the arch of the aorta. There is density obscuring the left lung base. There is bibasilar costophrenic angle blunting. More superiorly the lungs appear adequately aerated. Visualized bones are normal for the patient's age. IMPRESSION: Density of securing the left lung base and bibasilar costophrenic angle blunting could be due to consolidation with or without pleural effusion.
--- NOTE | 2017-09-05 13:51 | ECHO ---
Patient: HAN CAREY [facility] Rec#: [id number] : 1930 Date: 09/05/2017 Age: 87y Height: 160.02 cm / 63.0 in Weight: 67.13 kg / 148.0 lbs Sex: F BSA: 1.7 Room#: 437 Admit Date#: 09/02/2017 Type: Inpatient Referring: Diane Rendon Reading: Fareed Boyce MD Hire Car Driver: Kady Obregon RDCS Transthoracic Echocardiogram Indication: ACS, a-fib BP: 119/50 HR: 57 Rhythm: A-Fib Findings History: A-fib on Xarelto, HTN, HLD, CKD II-III. Technical Comments: The study quality is fair. Completed at 0845. Left Ventricle: The left ventricular chamber size is decreased. Mild concentric left ventricular hypertrophy is observed. Global left ventricular wall motion and contractility are within normal limits. There is normal left ventricular systolic function. The estimated ejection fraction is 55-60%. There is septal flattening of the interventricular septum consistent with right ventricular volume or pressure overload. The assessment of diastolic function is non-diagnostic. Left Atrium: The left atrium is moderately dilated. Right Ventricle: The right ventricle is moderately dilated. The right ventricular global systolic function is mildly to moderately reduced. Right Atrium: The right atrium is moderately dilated. Aortic Valve: The aortic valve is trileaflet. Moderate aortic leaflet calcification is visualized. Systolic excursion of the aortic valve cusps is reduced. There is mild aortic regurgitation. There is moderate aortic stenosis. The mean gradient of the aortic valve is 14.49 mmHg. The peak instantaneous gradient of the aortic valve is 23.17 mmHg. The aortic valve area, by peak velocities, is calculated at 1.1 cm2. The aortic valve area, by VTI's, is calculated at 1 cm2. The measured aortic regurgitation pressure half-time is 404.9 msec. Mitral Valve: Moderate mitral annular calcification present. The mitral valve leaflets are mildly thickened. There is prolapse of the anterior leaflet of the mitral valve. There is mild mitral regurgitation. There is no evidence of mitral stenosis. Tricuspid Valve: The tricuspid valve leaflets are normal. There is moderate to severe tricuspid regurgitation. The right ventricular systolic pressure is estimated at 69 mmHg. There is evidence of severe pulmonary hypertension. There is no tricuspid stenosis. Pulmonic Valve: The pulmonic valve appears normal. There is mild pulmonic regurgitation. There is no pulmonic stenosis. Pericardium: There is no significant pericardial effusion. A pericardial fat pad is visualized. Aorta: There is no dilatation of the ascending aorta. The aortic arch is not well visualized. The aortic root is normal in size. Pulmonary Artery: The main pulmonary artery appears normal. Venous: The inferior vena cava is dilated. There is a greater than 50% respiratory change in the inferior vena cava dimension. Summary: There are changes noted when compared to the previous study done on 12/18/2013, now there is increase in PHTN and mixed valvular disease severity Conclusions The left ventricular chamber size is decreased. Mild concentric left ventricular hypertrophy is observed. There is normal left ventricular systolic function. The estimated ejection fraction is 55-60%. There is septal flattening of the interventricular septum consistent with right ventricular volume or pressure overload. The left atrium is moderately dilated. The right ventricle is moderately dilated. The right atrium is moderately dilated. There is mild aortic regurgitation. There is moderate aortic stenosis. There is prolapse of the anterior leaflet of the mitral valve. There is mild mitral regurgitation. There is moderate to severe tricuspid regurgitation. The right ventricular systolic pressure is estimated at 69 mmHg. There is evidence of severe pulmonary hypertension. There is mild pulmonic regurgitation. Measurements Name Value Normal Range RVIDd (AP) 2D 3.6 cm (0.9 - 2.6) RVDdMajor (2D) 5.2 cm (2.2 - 4.4) RAd ISD 4CH 6.3 cm (3.4 - 4.9) RA (A4C)W 6.4 cm (2.9 - 4.6) IVSd (2D) 1.2 cm (0.6 - 1) LVPWd (2D) 1.1 cm (0.6 - 1) LVIDd (2D) 3.2 cm (3.6 - 5.4) LVIDs (2D) 1.9 cm - LV FS (2D) 39 % (25 - 45) Aortic Annulus 1.8 cm (1.4 - 2.6) Ao root diameter (2D) 3.2 cm (2.1 - 3.5) Ascending Ao 3.1 cm (2.1 - 3.4) LA dimension (AP) 2D 4.2 cm (2.3 - 3.8) LAd ISD 4CH 5.6 cm (2.9 - 5.3) LA ISD 4CH W 4.7 cm (2.5 - 4.5) Name Value Normal Range LA ESV SP 4CH (A/L) 56 ml - LA ESV SP 2CH (A/L) 96 ml - LA ESV BP (A/L) 79 ml - LA ESV BP (A/L) index 46 ml/m2 - LA ESV SP 4CH (MOD) 56 ml - LA ESV SP 2CH (MOD) 91 ml - Name Value Normal Range MV E-wave Vmax 1.45 m/sec - MV deceleration time 199.39 msec - MV E:A ratio 200.9 ratio - LV septal e' Vmax 0.11 m/sec - LV lateral e' Vmax 0.11 m/sec - LV E:e' septal ratio 13.18 ratio - LV E:e' lateral ratio 13.18 ratio - Name Value Normal Range AV Vmax 2.4 m/sec - AV VTI 57.81 cm - AV peak gradient 23.17 mmHg - AV mean gradient 14.49 mmHg - LVOT diameter 2 cm - LVOT Vmax 0.84 m/sec - LVOT VTI 19.14 cm - LVOT peak gradient 2.88 mmHg - LVOT mean gradient 1.42 mmHg - DOI (VTI) 0.33 ratio - LISE (continuity Vmax) 1.1 cm2 - LISE (continuity VTI) 1 cm2 - AR PHT 404.9 msec - AR peak gradient 77.1 mmHg - Name Value Normal Range TR Vmax 3.9 m/sec - TR peak gradient 61 mmHg - RAP 8 mmHg - RVSP 69 mmHg - IVC diameter 2.6 cm - Name Value Normal Range PV Vmax 0.83 m/sec - PV peak gradient 2.79 mmHg - FL end-diastolic Vmax 1.05 m/sec -
[2017-09-05] MEDS: Diltiazem CD CAP* 240 MG PO SCH (14:13)
[2017-09-05] MEDS: Rivaroxaban TAB(*) 15 MG PO SCH (17:23)
[2017-09-06] MEDS: Benzonatate CAP* 100 MG PO PRN ×3 (02:17→21:37)
[2017-09-06] MEDS: HYDROcodone/ACETAMIN 5-325 MG* 1 TAB PO PRN ×2 (02:18→10:15)
[2017-09-06] MEDS ORDERED: Ibuprofen TAB* 400 MG PO PRN (07:42)
[2017-09-06 08:48] LABS: Hematocrit 36 % (35-47); Hemoglobin 12.1 g/dl (12.0-16.0); Mean Corpuscular HGB Conc 34 g/dl (31-36); Mean Corpuscular Hemoglobin 31 pg (27-31); Mean Corpuscular Volume 93 fL (80-97); Mean Platelet Volume 7 um3 (7.4-10.4); Platelet Count 161 10^3/ul (150-450); Red Blood Count 3.88 10^6/ul (4.0-5.4); Red Cell Distribution Width 14 % (10.5-15); White Blood Count 5.6 10^3/ul (3.5-10.8)
[2017-09-06 08:59] LABS: EGFR Non-African American 64.1 (>60)
[2017-09-06] MEDS: Oseltamivir CAP* 30 MG CAP PO SCH ×2 (10:01→21:37)
[2017-09-06] MEDS: Cyanocobalamin TAB* 500 MCG PO SCH (10:01)
[2017-09-06] MEDS: Donepezil TAB* 5 MG PO SCH (10:01)
[2017-09-06] MEDS ORDERED: Magnesium Sulfate 2 GM IV* 2 GM/50 ML BAG IVPB ONE (10:54)
[2017-09-06] MEDS: Ondansetron INJ* 2 MG/ML VIAL IV PRN (12:27)
[2017-09-06 12:37] LABS: ABS Basophils 0.1 10^3/ul (0-0.2); ABS Eosinophils 0.1 10^3/ul (0-0.6); ABS Lymphocytes 1.5 10^3/ul (1.0-4.8); ABS Monocytes 0.3 10^3/ul (0-0.8); ABS Neutrophils 3.7 10^3/ul (1.5-7.7); ABS Nucleated RBC 0 10^3/ul; Eosinophil % 1.3 % (0-6); Lymphocyte % 26.3 % (25-47); Nucleated Red Blood Cells % 0
[2017-09-06] MEDS: Diltiazem CD CAP* 240 MG PO SCH (15:58)
[2017-09-06] MEDS: Polyethylene Glycol 3350* 17 GM PACKET PO SCH (15:59)
[2017-09-06] MEDS: Docusate CAP* 100 MG PO SCH (15:59)
--- NOTE | 2017-09-06 17:36 | PN ---
Subjective Date of Service: 09/06/17 Interval History: pleuritic pain continues. Very forgetful. got norco for pain and then vomitted afterwards. 50 cc pink tinged. afebrile. trop negative, EKG no ischemic changes. Family History: Unchanged from Admission Social History: Unchanged from Admission Past Medical History: Unchanged from Admission Objective Active Medications: Acetaminophen (Tylenol Tab*) 650 mg PO Q6H PRN PRN Reason: FEVER/PAIN Last Admin: 09/05/17 23:57 Dose: 650 mg Albuterol/Ipratropium (Duoneb (Albuterol 2.5 Mg/Ipratropium 0.5 Mg)) 1 neb INH Q4H PRN PRN Reason: SOB/WHEEZING Benzonatate (Tessalon Cap*) 100 mg PO TID PRN PRN Reason: COUGH Last Admin: 09/06/17 15:58 Dose: 100 mg Cyanocobalamin (Vitamin B12 Tab*) 1,000 mcg PO DAILY [facility] Last Admin: 09/06/17 10:01 Dose: 1,000 mcg Diltiazem HCl (Cardizem Cd Cap*) 240 mg PO Q24H [facility] Last Admin: 09/06/17 15:58 Dose: 240 mg Docusate Sodium (Colace Cap*) 100 mg PO DAILY [facility] Last Admin: 09/06/17 15:59 Dose: Not Given Donepezil HCl (Aricept Tab*) 5 mg PO DAILY [facility] Last Admin: 09/06/17 10:01 Dose: 5 mg Ibuprofen (Motrin Tab*) 400 mg PO Q6H PRN PRN Reason: PAIN Last Admin: 09/06/17 15:58 Dose: 400 mg Naphazoline HCl/Pheniramine Maleate (Naphcon-A*) 1 drop BOTH EYES QID PRN PRN Reason: ITCHING Ondansetron HCl (Zofran Inj*) 4 mg IV Q4H PRN PRN Reason: NAUSEA Last Admin: 09/06/17 12:27 Dose: 4 mg Oseltamivir Phosphate (Tamiflu Cap*) 30 mg PO 0900,2100 [facility] Stop: 09/07/17 09:01 Last Admin: 09/06/17 10:01 Dose: 30 mg Polyethylene Glycol/Electrolytes (Miralax*) 17 gm PO DAILY [facility] Last Admin: 09/06/17 15:59 Dose: Not Given Rivaroxaban (Xarelto(*)) 15 mg PO QPM [facility] Last Admin: 09/05/17 17:23 Dose: 15 mg Vital Signs - 8 hr 09/06/17 09/06/17 09/06/17 10:15 10:28 11:53 Temperature 98.1 F Pulse Rate 63 78 Respiratory 16 16 16 Rate Blood Pressure 152/74 (mmHg) O2 Sat by Pulse 95 94 Oximetry 09/06/17 09/06/17 12:19 12:29 Temperature 97.9 F Pulse Rate 72 Respiratory 16 18 Rate Blood Pressure 137/73 (mmHg) O2 Sat by Pulse 93 Oximetry Oxygen Devices in Use Now: None Appearance: NAD Eyes: No Scleral Icterus, PERRLA Ears/Nose/Mouth/Throat: NL Teeth, Lips, Gums, Mucous Membranes Moist Neck: NL Appearance and Movements; NL JVP Respiratory: Symmetrical Chest Expansion and Respiratory Effort, Clear to Auscultation Cardiovascular: NL Sounds; No Murmurs; No JVD, RRR Abdominal: NL Sounds; No Tenderness; No Distention, No Hepatosplenomegaly Extremities: No Edema, No Clubbing, Cyanosis Skin: No Rash or Ulcers, No Nodules or Sclerosis Neurological: - - oriented to hospital, [place] and name. forgetful. MCGHEE. Nutrition: Taking PO's Result Diagrams: 09/06/17 08:34 09/06/17 08:34 Additional Lab and Data: Laboratory Results - last 24 hr 09/06/17 09/06/17 09/06/17 08:34 08:34 08:34 WBC 5.6 RBC 3.88 L Hgb 12.1 Hct 36 MCV 93 MCH 31 MCHC 34 RDW 14 Plt Count 161 MPV 7 L Neut % (Auto) 65.1 Lymph % (Auto) 26.3 Dukes % (Auto) 6.1 Eos % (Auto) 1.3 Baso % (Auto) 1.2 Absolute Neuts (auto) 3.7 Absolute Lymphs (auto) 1.5 Absolute Monos (auto) 0.3 Absolute Eos (auto) 0.1 Absolute Basos (auto) 0.1 Absolute Nucleated RBC 0 Nucleated RBC % 0 Sodium 134 Potassium 4.1 Chloride 103 Carbon Dioxide 24 Anion Gap 7 BUN 10 Creatinine 0.84 Est GFR ( Amer) 82.5 Est GFR (Non-Af Amer) 64.1 BUN/Creatinine Ratio 11.9 Glucose 90 Calcium 8.6 Magnesium 1.7 L Troponin I Procalcitonin < 0.1 09/06/17 13:16 WBC RBC Hgb Hct MCV MCH MCHC RDW Plt Count MPV Neut % (Auto) Lymph % (Auto) Dukes % (Auto) Eos % (Auto) Baso % (Auto) Absolute Neuts (auto) Absolute Lymphs (auto) Absolute Monos (auto) Absolute Eos (auto) Absolute Basos (auto) Absolute Nucleated RBC Nucleated RBC % Sodium Potassium Chloride Carbon Dioxide Anion Gap BUN Creatinine Est GFR ( Amer) Est GFR (Non-Af Amer) BUN/Creatinine Ratio Glucose Calcium Magnesium Troponin I 0.01 Procalcitonin Microbiology and Other Data: Microbiology 09/02/17 15:43 Blood Venous Aerobic Blood Culture - Preliminary No Growth Day 4 09/02/17 15:43 Blood Venous Anaerobic Blood Culture - Preliminary No Growth Day 4 09/02/17 11:48 Blood Venous Aerobic Blood Culture - Preliminary No Growth Day 4 09/02/17 11:48 Blood Venous Anaerobic Blood Culture - Preliminary No Growth Day 4 09/02/17 12:00 Nasopharyngeal Influenza Types A,B Antigen (STEVENSON) - Final Specimen received for Influenza A/B Molecular testing Assess/Plan/Problems-Billing Assessment: 87 yo female with history of afib on xarelto, HTN, CKD who had mechanical fall at home([facility]), found to be Influenza A positive. Sepsis (AMS, hypotensive). Pleuritic pain continues. To [facility] 09/07 - Patient Problems (1) Influenza Current Visit: Yes Status: Acute Code(s): J11.1 - FLU DUE TO UNIDENTIFIED INFLUENZA VIRUS W OTH RESP MANIFEST SNOMED Code(s): 6711773 Comment: Causing sepsis (hypotension, AMS) likely causing pleuritic pain. s/p CT c/a/p with contrast. no PE or dissection. tamiflu day 4.5 wean oxygen as able. Currently 1L CXR left lung base obscured (2) Fall Current Visit: Yes Status: Acute Comment: she and her report 3 falls in the past week. not orthostatic 09/04/17. continue PT, likely will need [facility] SNF (3) Encephalopathy acute Current Visit: Yes Status: Acute Code(s): G93.40 - ENCEPHALOPATHY, UNSPECIFIED SNOMED Code(s): 8774613 Comment: Improved/resolved. likely 2/[address] head negative 09/02 UA unremarkable. (4) Afib Current Visit: No Status: Acute Code(s): I48.91 - UNSPECIFIED ATRIAL FIBRILLATION SNOMED Code(s): 49637237 Comment: Continue diltiazem ER and xarelto. Rate controlled (5) Hypertension Current Visit: No Status: Acute Code(s): I10 - ESSENTIAL (PRIMARY) HYPERTENSION SNOMED Code(s): 75417896 Comment: BP improved after some SBP <80s day of admission. Status and Disposition: medicine inpatient. D/c 09/07 to [facility]. Attending: Don Campos
[2017-09-06] MEDS: Rivaroxaban TAB(*) 15 MG PO SCH (17:38)
[2017-09-06] MEDS: Acetaminophen TAB* 325 MG PO PRN (21:37)
[2017-09-07] MEDS: Polyethylene Glycol 3350* 17 GM PACKET PO SCH (08:13)
[2017-09-07] MEDS: Oseltamivir CAP* 30 MG CAP PO SCH (08:14)
[2017-09-07] MEDS: Docusate CAP* 100 MG PO SCH (08:14)
[2017-09-07] MEDS: Benzonatate CAP* 100 MG PO PRN (08:14)
[2017-09-07] MEDS: Donepezil TAB* 5 MG PO SCH (08:14)
[2017-09-07] MEDS: Cyanocobalamin TAB* 500 MCG PO SCH (08:14)
[2017-09-07 10:33] VITALS: BP 126/68
--- NOTE | 2017-09-07 11:33 | DS ---
DATE OF ADMISSION: 09/02/2017. DATE OF DISCHARGE: 09/07/2017. CHIEF COMPLAINT: Fall. PRIMARY CARE PHYSICIAN: Dr. Brumfield. ATTENDING PHYSICIANS: Dr. Don Campos and Dr. Pia Shea. ADMITTING PROVIDER: Diane Rendon NP. PRINCIPAL DIAGNOSES: Influenza; pleurisy. HISTORY OF PRESENT ILLNESS AND HOSPITAL COURSE: Ms. Manning is an 87-year-old female with a past medical history of atrial fibrillation on Xarelto, hypertension, hyperlipidemia, chronic kidney disease stage 2 to 3, mild cognitive decline with memory issues living in the [facility]. She presented with two falls and in recent days has been fatigued and with a cough, though denied any fevers or chills. She had decreased appetite and some diarrhea the morning of admission. She was found to be positive for influenza A and started on Tamiflu. She had chest discomfort when breathing in. She had an elevated troponin of 0.06 without any EKG changes. She had a CT angiogram of her chest, abdomen and pelvis which showed no evidence of aortic dissection or pulmonary embolism. It showed some atelectasis and chronic changes in the lung bases. She was without leukocytosis and afebrile. She has oxygen requirements of one to two liters that resolved by the day of discharge. She had intermittent periods of confusion and was very forgetful of her diagnosis and the explanations for reasons she is having the pleuritic chest pain. She was having what the described as hallucinations when she closed her eyes as she could visualize previous state of residence, [place], but that resolved when she would open her eyes. She completed a five day course of Tamiflu while in the hospital and was started on NSAID's for her pleuritic chest pain. She is returning to skilled physical therapy, [facility]. DISCHARGE MEDICATIONS: 1. Docusate 100 mg p.o. daily (new). 2. Cyanocobalamin 1,000 mcg p.o. daily. 3. Aricept 5 mg p.o. daily. 4. Opcon-A eye drops one drop both eyes q.i.d. prn. 5. Xarelto 15 mg p.o. q.p.m. 6. Acetaminophen 500 mg p.o. q.8 hours prn. 7. Zyrtec 5 mg p.o. q.a.m. 8. Cholecalciferol 50,000 units p.o. weekly. 9. Diltiazem 240 mg p.o. q.a.m. 10. Hydrocodone/acetaminophen 5/325 one to two tabs p.o. q.4 to 6 hours prn. 11. Magnesium Oxide 250 mg p.o. q.p.m. 12. Meclizine 12.5 mg p.o. q.8 hours. 13. MiraLax 17 gm p.o. daily prn (new). 14. Kenalog (Triamcinolone) 0.1% cream topical b.i.d. prn. DISCHARGE DIET: Heart healthy. ACTIVITY LEVEL: No restrictions, but requiring physical therapy. FOLLOW-UP: Please follow-up with primary care provider Dr. Brumfield at [facility]. Time spent on this discharge was 35 minutes. [id number]/CPS #: [id number] MTDD
== END 2017-09-07 13:40 | DRG 193 ==
LOC: ED 08:29 → MEDTELE 13:09 → OBSVTOIN 09-03 16:02
PROVIDERS: ADMIT Internal Medicine; ATTEND Internal Medicine
DX: J10.1 Influenza due to other identified influenza virus with other respiratory manifestations (principal); G93.40 Encephalopathy, unspecified; I48.91 Unspecified atrial fibrillation; I08.2 Rheumatic disorders of both aortic and tricuspid valves; E86.9 Volume depletion, unspecified; N18.3 Chronic kidney disease, stage 3 (moderate); I12.9 Hypertensive chronic kidney disease with stage 1 through stage 4 chronic kidney disease, or unspecified chronic kidney disease; E78.5 Hyperlipidemia, unspecified; Z79.01 Long term (current) use of anticoagulants; R41.81 Age-related cognitive decline; W06.XXXA Fall from bed, initial encounter; Y92.032 Bedroom in apartment as the place of occurrence of the external cause; Z79.1 Long term (current) use of non-steroidal anti-inflammatories (NSAID); Z79.899 Other long term (current) drug therapy; Z88.1 Allergy status to other antibiotic agents; Z88.5 Allergy status to narcotic agent; Z88.8 Allergy status to other drugs, medicaments and biological substances; Z80.0 Family history of malignant neoplasm of digestive organs; Z88.6 Allergy status to analgesic agent
CPT/HCPCS: 36415; 70450; 71045; 71275; 72125; 74018; 74174; 80048; 80053; 81003; 81015; 82550; 82803; 83605; 83735; 84145; 84484; 85025; 85610; 85730; 87040; 87502; 93005; 93306; 94640; 94760; 99283; A9270-GY; G0378; G8978-GP-CM; G8979-GP-CL; J2270; J2405; J3475; Q9967

== ENCOUNTER 2017-09-22 01:40 | Emergency (ER) | payer MEDICARE, OTHER ==
[2017-09-22] MEDS ORDERED: NS 0.9% 1000 ML* 1,000 ML IV ONE (01:56)
[2017-09-22] MEDS ORDERED: Ketorolac INJ* 30 MG/ML 1 ML VIAL IV PUSH ONE (02:51)
[2017-09-22 02:57] LABS: ABS Basophils 0 10^3/ul (0-0.2); ABS Eosinophils 0.2 10^3/ul (0-0.6); ABS Lymphocytes 2.3 10^3/ul (1.0-4.8); ABS Monocytes 0.5 10^3/ul (0-0.8); ABS Neutrophils 2.2 10^3/ul (1.5-7.7); ABS Nucleated RBC 0 10^3/ul; Eosinophil % 3.4 % (0-6); Hematocrit 35 % (35-47); Hemoglobin 11.6 g/dl (12.0-16.0); Lymphocyte % 43.9 % (25-47); Mean Corpuscular HGB Conc 33 g/dl (31-36); Mean Corpuscular Hemoglobin 32 pg (27-31); Mean Corpuscular Volume 96 fL (80-97); Mean Platelet Volume 6 um3 (7.4-10.4); Nucleated Red Blood Cells % 0.1; Platelet Count 276 10^3/ul (150-450); Red Blood Count 3.67 10^6/ul (4.0-5.4); Red Cell Distribution Width 16 % (10.5-15); White Blood Count 5.3 10^3/ul (3.5-10.8)
[2017-09-22 03:02] LABS: INR 1.56 (0.77-1.02)
[2017-09-22 03:10] LABS: EGFR Non-African American 43.3 (>60)
--- NOTE | 2017-09-22 05:37 | ED ---
Zoe De Jesus Nilda, scribed for Demetrio Babcock MD on 09/22/17 at 0306 . HPI Chest Pain - HPI Summary HPI Summary: This patient is an 87 year old F BIBA from [facility] with a chief complaint of constant mild R-sided CP that radiates to left side for the past few days that has worsened this evening. She states she was seen at [facility] for a sprained muscle on her torso a few days ago. The patient rates the pain 0/10 in severity. Symptoms aggravated by palpation and alleviated by nothing including NTG administered [employer]. PMHx includes HTN, GERD, CAD, A-fib, and repeated falls, per medical records. Medications include Xaralto. Pt has Hx of mild dementia and had difficulty recalling history and why she was here. - History of Current Complaint Chief Complaint: EDChestWallPain Time Seen by Provider: 09/22/17 02:36 Hx Obtained From: Patient, Medical Records Onset/Duration: Started Days Ago, Still Present Timing: Constant Current Severity: Mild Pain Intensity: 0 Pain Scale Used: 0-10 Numeric Chest Pain Location: Left Lateral, Right Lateral Chest Pain Radiates: No Aggravating Factor(s): Other: - palpation Alleviating Factor(s): Nothing Related History: Recent Trauma - sprain muscle on torso - Additional Pertinent History Primary Care Physician: BONNIE - Allergy/Home Medications Allergies/Adverse Reactions: Allergies Allergy/AdvReac Type Severity Reaction Status Date / Time amoxicillin Allergy Mild Itching Verified 09/06/17 09:35 Barbiturates Allergy Mild Itching Verified 09/06/17 09:36 aspirin Allergy Unknown Unknown Verified 09/06/17 09:52 Reaction Details Penicillins Allergy Unknown Unknown Verified 09/04/17 22:04 Reaction Details carisoprodol Allergy Unknown Verified 09/06/17 09:38 Reaction Details clavulanic acid Allergy Itching Verified 09/06/17 09:40 metoprolol Allergy Unknown Verified 09/06/17 09:38 Reaction Details PMH/Surg Hx/FS Hx/Imm Hx Endocrine/Hematology History: Reports: Hx Anticoagulant Therapy - Coumadin for Afib, Hx Thyroid Disease, Hx Anemia Denies: Hx Diabetes Cardiovascular History: Reports: Hx Atrial Fibrillation, Hx Coronary Artery Disease, Hx Hypercholesterolemia, Hx Hypertension, Hx Rheumatic Fever - A CHILD POSSIBLY, Hx Valvular Heart Disease - aortic stenosis, Other Cardiovascular Problems/Disorders - pfo, nsvt, mitral valve prolapse, afib Denies: Hx Angina, Hx Pacemaker/ICD Respiratory History: Reports: Hx Pneumonia Denies: Hx Asthma, Hx Chronic Obstructive Pulmonary Disease (COPD) GI History: Reports: Hx Gastroesophageal Reflux Disease Denies: Hx Irritable Bowel, Hx Ulcer, Other GI Disorders History: Denies: Hx Acute Renal Failure, Hx Renal Disease Musculoskeletal History: Denies: Hx Arthritis Sensory History: Denies: Hx Contacts or Glasses, Hx Hearing Aid Opthamlomology History: Denies: Hx Contacts or Glasses Neurological History: Reports: Hx Migraine - HX OF YEARS AGO Denies: Hx Dementia, Hx Seizures Psychiatric History: Denies: Hx Substance Abuse - Cancer History Hx Chemotherapy: No Hx Radiation Therapy: No - Surgical History Surgery Procedure, Year, and Place: RIGHT INGUIAL HERNIA REPAIR,. 2010 CARDIAC [place], [facility] [place] RIGHT PARTIAL PALMAR FASCIOTOMY WITH RELEASE OF LITTLE FINGER, [facility]. TONSILLECTOMY A CHILD,. CLOSURE OF HEART FLAP, [facility] ( ACCORDING TO PATIENT DONE BY DR. LEE) Hx Anesthesia Reactions: No Infectious Disease History: No Infectious Disease History: Denies: Hx Hepatitis, Hx Human Immunodeficiency Virus (HIV), Traveled Outside the [place] in Last 30 Days - Family History Known Family History: Positive: Unknown - Pt denies family history when asked Family History: Denies any FHx of malignant hyperthermia, anesthesia reaction, or breast cancer. - Social History Alcohol Use: Rare Substance Use Type: Reports: None Smoking Status (MU): Never Smoked Tobacco Review of Systems - ROS Summary Review of Systems Summary: Pt has Hx of mild dementia and had difficulty recalling history and why she was here. Positive: Chest Pain Negative: Shortness Of Breath All Other Systems Reviewed And Are Negative: Yes Physical Exam - Summary Physical Exam Summary: Appearance: Well appearing, no pain distress Skin: warm, dry, reflects adequate perfusion, erythematous rash along hairline Head/face: normal Eyes: EOMI, KENDRA ENT: normal Neck: supple, non-tender Respiratory: CTA, breath sounds present Cardiovascular: Irregularly irregular HR, no murmur Abdomen: non-tender, soft Bowel sounds: present Musculoskeletal: strength/ROM intact, no edema bilat, sternal tenderness Neuro: normal, sensory motor intact, A&Ox2 Triage Information Reviewed: Yes Vital Signs On Initial Exam: Initial Vitals Temp Pulse Resp BP Pulse Ox 97.8 F 66 19 137/76 94 09/22/17 01:51 09/22/17 01:51 09/22/17 01:51 09/22/17 01:51 09/22/17 01:51 Vital Signs Reviewed: Yes Diagnostics - Vital Signs Vital Signs Temp Pulse Resp BP Pulse Ox 09/22/17 01:51 97.8 F 66 19 137/76 94 - Laboratory Lab Results: Lab Results 09/22/17 09/22/17 09/22/17 Range/Units 02:44 02:44 02:44 WBC 5.3 (3.5-10.8) 10^3/ul RBC 3.67 L (4.0-5.4) 10^6/ul Hgb 11.6 L (12.0-16.0) g/dl Hct 35 (35-47) % MCV 96 (80-97) fL MCH 32 H (27-31) pg MCHC 33 (31-36) g/dl RDW 16 H (10.5-15) % Plt Count 276 (150-450) 10^3/ul MPV 6 L (7.4-10.4) um3 Neut % (Auto) 42.1 (38-83) % Lymph % (Auto) 43.9 (25-47) % [place] % (Auto) 10.1 H (1-9) % Eos % (Auto) 3.4 (0-6) % Baso % (Auto) 0.5 (0-2) % Absolute Neuts (auto) 2.2 (1.5-7.7) 10^3/ul Absolute Lymphs (auto) 2.3 (1.0-4.8) 10^3/ul Absolute Monos (auto) 0.5 (0-0.8) 10^3/ul Absolute Eos (auto) 0.2 (0-0.6) 10^3/ul Absolute Basos (auto) 0 (0-0.2) 10^3/ul Absolute Nucleated RBC 0 10^3/ul Nucleated RBC % 0.1 INR (Anticoag Therapy) 1.56 H (0.77-1.02) Sodium 135 (133-145) mmol/L Potassium 4.4 (3.5-5.0) mmol/L Chloride 103 (101-111) mmol/L Carbon Dioxide 24 (22-32) mmol/L Anion Gap 8 (2-11) mmol/L BUN 23 (6-24) mg/dL Creatinine 1.18 H (0.51-0.95) mg/dL Est GFR ( Amer) 55.7 (>60) Est GFR (Non-Af Amer) 43.3 (>60) BUN/Creatinine Ratio 19.5 (8-20) Glucose 100 (70-100) mg/dL Lactic Acid (0.5-2.0) mmol/L Calcium 9.6 (8.6-10.3) mg/dL Total Bilirubin 0.30 (0.2-1.0) mg/dL AST 20 (13-39) U/L ALT 14 (7-52) U/L Alkaline Phosphatase 84 (34-104) U/L Troponin I 0.00 (<0.04) ng/mL Total Protein 6.6 (6.4-8.9) g/dL Albumin 3.5 (3.2-5.2) g/dL Globulin 3.1 (2-4) g/dL Albumin/Globulin Ratio 1.1 (1-3) 09/22/17 Range/Units 03:11 WBC (3.5-10.8) 10^3/ul RBC (4.0-5.4) 10^6/ul Hgb (12.0-16.0) g/dl Hct (35-47) % MCV (80-97) fL MCH (27-31) pg MCHC (31-36) g/dl RDW (10.5-15) % Plt Count (150-450) 10^3/ul MPV (7.4-10.4) um3 Neut % (Auto) (38-83) % Lymph % (Auto) (25-47) % [place] % (Auto) (1-9) % Eos % (Auto) (0-6) % Baso % (Auto) (0-2) % Absolute Neuts (auto) (1.5-7.7) 10^3/ul Absolute Lymphs (auto) (1.0-4.8) 10^3/ul Absolute Monos (auto) (0-0.8) 10^3/ul Absolute Eos (auto) (0-0.6) 10^3/ul Absolute Basos (auto) (0-0.2) 10^3/ul Absolute Nucleated RBC 10^3/ul Nucleated RBC % INR (Anticoag Therapy) (0.77-1.02) Sodium (133-145) mmol/L Potassium (3.5-5.0) mmol/L Chloride (101-111) mmol/L Carbon Dioxide (22-32) mmol/L Anion Gap (2-11) mmol/L BUN (6-24) mg/dL Creatinine (0.51-0.95) mg/dL Est GFR ( Amer) (>60) Est GFR (Non-Af Amer) (>60) BUN/Creatinine Ratio (8-20) Glucose (70-100) mg/dL Lactic Acid 1.7 (0.5-2.0) mmol/L Calcium (8.6-10.3) mg/dL Total Bilirubin (0.2-1.0) mg/dL AST (13-39) U/L ALT (7-52) U/L Alkaline Phosphatase (34-104) U/L Troponin I (<0.04) ng/mL Total Protein (6.4-8.9) g/dL Albumin (3.2-5.2) g/dL Globulin (2-4) g/dL Albumin/Globulin Ratio (1-3) Result Diagrams: 09/22/17 02:44 09/22/17 02:44 Lab Statement: Any lab studies that have been ordered have been reviewed, and results considered in the medical decision making process. - Radiology CXR Radiology Interpretation Completed By: ED Physician - CXR reveals no acute findings compared to previous. - EKG 0136 Cardiac Rate: Other Rate EKG Rhythm: Atrial Fibrillation - [address] Segment: Non-Specific EKG Interpretation: nl axis, low voltage Chest Pain Course/Dx - Course Course Of Treatment: Pt didnt recall why she was here. Pain was gone. She states she was recently tx for a "muscle strain". Pain was reproducible, going for ~1wk. Tx here with small dose toradol. Trop 0. Rate controlled A fib, with hx of same. Assessment/Plan: EKG reveals A-fib, 69 bpm, nml axis, nonspecific ST, low voltage. CXR reveals no acute findings compared to previous. - Chest Pain Differential Diagnosis/HQI/PQRI: Acute OR, ACS, Angina, CHF, Chest Wall, GI Disease - Diagnoses Provider Diagnoses: Atypical chest pain, Chest wall pain, A-fib Discharge - Discharge Plan Condition: Good Disposition: RESIDENTIAL FACILITY Patient Education Materials: Chest Pain (ED) Referrals: Kathy, [Primary Care Provider] - Additional Instructions: Tylenol as needed for discomfort. Call Primary doctor for follow up in the morning. Return if worse, new symptoms or other concerns. The documentation as recorded by the Zoe short Nilda accurately reflects the service I personally performed and the decisions made by Sadiq jean-baptiste Kirk, MD.
[2017-09-22 05:38] VITALS: BP 145/78
--- NOTE | 2017-09-22 08:06 | RAD ---
Indication: Chest pain. Single frontal view of the chest performed at 0220 hours was reviewed. Comparison is made with previous exam dated September 05, 2017. Cardiomegaly is noted. No pleural fluid, pneumonia or pneumothorax. No changes noted since prior exam. IMPRESSION: NO ACTIVE CARDIOPULMONARY DISEASE IS NOTED.
== END 2017-09-22 05:34 ==
LOC: ED 01:40
DX: R07.89 Other chest pain (principal); I48.91 Unspecified atrial fibrillation; Z79.01 Long term (current) use of anticoagulants; I25.10 Atherosclerotic heart disease of native coronary artery without angina pectoris; E78.00 Pure hypercholesterolemia, unspecified; I10 Essential (primary) hypertension; K21.9 Gastro-esophageal reflux disease without esophagitis; F03.90 Unspecified dementia, unspecified severity, without behavioral disturbance, psychotic disturbance, mood disturbance, and anxiety
CPT/HCPCS: 36415; 71045; 80053; 83605; 84484; 85025; 85610; 93005; 96360; 96374; 99285; J1885

== ENCOUNTER 2018-04-27 13:57 | Emergency (ER) | payer MEDICARE, OTHER ==
[2018-04-27 14:08] VITALS: BP 134/99
--- NOTE | 2018-04-27 14:43 | RAD ---
HISTORY: rib pain s/p fall COMPARISONS: September 22, 2017 VIEWS: 7 , Frontal view of the chest with frontal and oblique views of the left hemithorax FINDINGS: There is no displaced rib fracture or pneumothorax. The visualized lungs are clear. There is hyperinflation. IMPRESSION: NO DISPLACED RIB FRACTURE OR PNEUMOTHORAX.
--- NOTE | 2018-04-27 15:00 | UC ---
Truncal Trauma HPI - HPI Summary HPI Summary: LOST BALANCE AND FELL THIS MORNING AND STRUCK LEFT RIB CAGE ON A CHAIR. HAS PAIN WITH MOVEMENT AND WITH DEEP BREATHS. NO SOB, NO FEVER. DENIES HEAD TRAUMA. - History Of Current Complaint Chief Complaint: UCUpperExtremity Stated Complaint: RIB PAIN Time Seen by Provider: 04/27/18 14:38 Hx Obtained From: Patient Onset/Duration: Sudden Onset, Lasting Hours, Still Present Onset Of Pain: Immediate Severity Initially: Moderate Severity Currently: Moderate Pain Intensity: 7 Pain Scale Used: 0-10 Numeric Mechanism Of Injury: Blunt Trauma Aggravating Factor(s): Movement, Deep Breathing, Cough Alleviating factor(s): Rest Associated Signs And Symptoms: Negative: SOB, Chest Pain, Cough, Hematuria, Abdominal Pain, Fever, Nausea, Vomiting Related History: Anticoagulants - Allergies/Home Medications Allergies/Adverse Reactions: Allergies Allergy/AdvReac Type Severity Reaction Status Date / Time amoxicillin Allergy Mild Itching Verified 04/27/18 14:09 Barbiturates Allergy Mild Itching Verified 04/27/18 14:09 aspirin Allergy Unknown Unknown Verified 04/27/18 14:09 Reaction Details Penicillins Allergy Unknown Unknown Verified 04/27/18 14:09 Reaction Details carisoprodol Allergy Unknown Verified 04/27/18 14:09 Reaction Details clavulanic acid Allergy Itching Verified 04/27/18 14:09 metoprolol Allergy Unknown Verified 04/27/18 14:09 Reaction Details PMH/Surg Hx/FS Hx/Imm Hx Endocrine History: Thyroid Disease Cardiovascular History: Hypertension, Atrial Fibrillation Other History Of: Anticoagulant Therapy - Coumadin for Afib - Surgical History Surgical History: Yes Surgery Procedure, Year, and Place: RIGHT INGUIAL HERNIA REPAIR,. [place] [facility] [place] PARTIAL PALMAR FASCIOTOMY WITH RELEASE OF LITTLE FINGER, [facility]. TONSILLECTOMY A CHILD,. CLOSURE OF HEART FLAP, [facility] ( ACCORDING TO PATIENT DONE BY DR. LEE) - Family History Known Family History: Positive: Unknown - Pt denies family history when asked Family History: Denies any FHx of malignant hyperthermia, anesthesia reaction, or breast cancer. - Social History Alcohol Use: Rare Substance Use Type: None Smoking Status (MU): Never Smoked Tobacco - Immunization History Most Recent Influenza Vaccination: 05/2017 Most Recent Tetanus Shot: 2005 Most Recent Pneumonia Vaccination: couple years ago Review of Systems Constitutional: Negative Skin: Negative Respiratory: Negative Cardiovascular: Negative Gastrointestinal: Negative Musculoskeletal: Decreased ROM, Other: - LEFT RIB CAGE PAIN All Other Systems Reviewed And Are Negative: Yes Physical Exam Triage Information Reviewed: Yes Appearance: Well-Appearing, No Pain Distress, Well-Nourished Vital Signs: Initial Vital Signs Temp 97.7 F 04/27/18 14:02 Pulse 75 04/27/18 14:02 Resp 18 04/27/18 14:02 BP 134/99 04/27/18 14:02 Pulse Ox 98 04/27/18 14:02 Vital Signs Reviewed: Yes Eyes: Positive: Conjunctiva Clear ENT: Positive: Hearing grossly normal Neck: Positive: Supple Respiratory: Positive: Lungs clear, Normal breath sounds, No respiratory distress, No accessory muscle use Cardiovascular: Positive: Other: - IRREGULARLY IRREGULAR Abdomen Description: Positive: Soft Musculoskeletal: Positive: No Edema, Other: - TTP LEFT ANTEROLATERAL RIB CAGE Neurological: Positive: Alert Psychological: Positive: Age Appropriate Behavior Skin: Negative: rashes Diagnostics - Radiology LEFT RIB XRAYS Xray Interpretation: No Acute Changes Radiology Interpretation Completed By: Radiologist Truncal Trauma Course/Dx - Differential Dx/Diagnosis Provider Diagnoses: LEFT RIB CONTUSION Discharge - Sign-Out/Discharge Documenting (check all that apply): Patient Departure, Post-Discharge Follow Up All imaging exams completed and their final reports reviewed: Yes - Discharge Plan Condition: Stable Disposition: HOME Patient Education Materials: Rib Contusion (ED) Referrals: Duglas James MD [Medical Doctor] - If Needed Additional Instructions: NO FRACTURE SEEN ON XRAYS TODAY. BE SURE TO TAKE SEVERAL DEEP BREATHS THROUGHOUT THE DAY TO KEEP YOUR LUNGS EXPANDED. GO TO ED WITHOUT FAIL IF YOU DEVELOP SHORTNESS OF BREATH, CHEST PAIN, NAUSEA, SWEATS, DIZZINESS OR ANY OTHER CONCERNING SYMPTOMS. TYLENOL NEEDED FOR DISCOMFORT. - Billing Disposition and Condition Condition: STABLE Disposition: Home
== END 2018-04-27 15:00 | disposition home or self-care (01) ==
LOC: UCEAST 13:57
DX: S20.212A Contusion of left front wall of thorax, initial encounter (principal); W18.09XA Striking against other object with subsequent fall, initial encounter; Y93.9 Activity, unspecified; Y92.9 Unspecified place or not applicable; I48.91 Unspecified atrial fibrillation; Z79.01 Long term (current) use of anticoagulants; Z88.6 Allergy status to analgesic agent; Z88.0 Allergy status to penicillin; Z88.8 Allergy status to other drugs, medicaments and biological substances
CPT/HCPCS: 99212; G0463